=== PATIENT | female | born 1975 | race Two or more races ===

== ENCOUNTER 2024-02-10 20:59 | Emergency (ER) | payer OTHER ==
[~2024-02-10] VITALS: Ht 165.1 cm; Wt 64.4 kg
[2024-02-10 21:18] VITALS: BP 100/70; O2SAT 97
[2024-02-10] MEDS ORDERED: KETOROLAC TROMETHAMINE 30 MG VIAL IM ONE (21:45)
[2024-02-10] MEDS ORDERED: KETOROLAC TROMETHAMINE 60 MG VIAL IM ONE (21:46)
[2024-02-11] MEDS ORDERED: NORFLEX100MG PO (00:11)
== END 2024-02-11 00:22 | disposition home or self-care (01) ==
LOC: ER 21:01
DX: S09.8XXA Other specified injuries of head, initial encounter (principal); W19.XXXA Unspecified fall, initial encounter; Y93.I9 Activity, other involving external motion; Y92.89 Other specified places as the place of occurrence of the external cause; Y99.8 Other external cause status